=== PATIENT | female | born 1965 | race Caucasian/White ===

== ENCOUNTER → 2017-06-26 | Outpatient (CLI) | payer OTHER | LOC: BHFA 09:30 | PROVIDERS: ATTEND Internal Medicine Cardiovascular Disease | DX: R07.9 Chest pain, unspecified (principal); R94.31 Abnormal electrocardiogram [ECG] [EKG]; J44.9 Chronic obstructive pulmonary disease, unspecified; E78.5 Hyperlipidemia, unspecified; Z72.0 Tobacco use ==

== ENCOUNTER → 2017-07-17 | Outpatient (CLI) | payer OTHER | LOC: BHFA 08:30 | PROVIDERS: ATTEND Internal Medicine Cardiovascular Disease | DX: R07.9 Chest pain, unspecified (principal); R94.31 Abnormal electrocardiogram [ECG] [EKG]; J44.9 Chronic obstructive pulmonary disease, unspecified | CPT/HCPCS: 78452; 93017; 93306; A9500 ==

== ENCOUNTER 2017-08-07 07:32 | Day surgery (SDC) | payer OTHER ==
[2017-08-07] MEDS ORDERED: NS 1,000 ML IV SCH (07:36)
[2017-08-07] MEDS ORDERED: ASPIRIN EC 325 MG TAB PO ONE ×2 (07:36→07:58)
[2017-08-07] MEDS ORDERED: diphenhydrAMINE 25 MG CAP PO ONE ×2 (07:36→07:58)
[2017-08-07] MEDS ORDERED: ACETAMINOPHEN 325 MG TAB PO PRN (07:36)
[2017-08-07] MEDS ORDERED: DIAZEPAM 5 MG TAB PO ONE (07:36)
[2017-08-07] MEDS ORDERED: FAMOTIDINE 20 MG TAB PO ONE (07:36)
[2017-08-07] MEDS ORDERED: TEMAZEPAM 15 MG CAP PO PRN (07:36)
[2017-08-07] MEDS ORDERED: NITROGLYCERIN 0.4 MG BTL SL PRN (07:36)
--- NOTE | 2017-08-07 07:53 | CPEKG ---
Heart Rate: 105 RR Interval: 571 P-R Interval: 148 QRSD Interval: 84 QT Interval: 344 QTC Interval: 455 P [place]: 77 QRS [place]: 28 T Wave [place]: 9 EKG Severity - ABNORMAL ECG - EKG Impression: SINUS TACHYCARDIA EKG Impression: RIGHT ATRIAL ABNORMALITY EKG Impression: CONSIDER POSTERIOR INFARCT Electronically Signed By: Benitez Plata 10-Aug-2017 02:37:55
[2017-08-07] MEDS ORDERED: FAMOTIDINE 20 MG TAB ONE (07:58)
[2017-08-07] MEDS ORDERED: DIAZEPAM 5 MG TAB ONE (07:59)
--- NOTE | 2017-08-07 08:38 | PDHPUP ---
History & Physical Update H&P update statement: This history and physical update is based on an assessment of the patient which was completed after admission or registration (within 24 hours), but prior to the surgery/procedure. H&P update: H&P reviewed & patient examined, no change in patient's condition since H&P completed
--- NOTE | 2017-08-07 08:39 | PDPROPOC ---
Sedation Plan of Care Sedation Plan of Care: vital signs stable, mental status noted, patient educated of risks, benefits, alternatives, patient can tolerate sedation Planned drugs: fentanyl, midazolam Mallampati Score: Class 2 Mallampati Reference Image: Patient passed 3-3-2 rule?: Yes
[2017-08-07 08:42] LABS: INR 1.01 (0.83-1.16); PROTIME(PATIENT) 13.5 SEC (12.0-15.0)
[2017-08-07 08:50] LABS: PLATELET COUNT 317 10^3/uL (150-400)
[2017-08-07] MEDS ORDERED: LIDOCAINE 1% 300 MG/30 ML SDV ONE (08:52)
[2017-08-07] MEDS ORDERED: fentaNYL 100 MCG/2 ML INJ ONE (08:53)
[2017-08-07] MEDS ORDERED: MIDAZOLAM 2 MG/2 ML VIAL ONE ×2 (08:53)
[2017-08-07] MEDS ORDERED: NITROGLYCERIN 1,500 MCG/15 ML VIAL MISC ONE (09:00)
[2017-08-07] MEDS ORDERED: BIVALIRUDIN 250 MG/5 ML VIAL IV ONE (09:00)
[2017-08-07] MEDS ORDERED: ATROPINE SULFATE 1 MG/10 ML SYR IVP PRN (10:23)
[2017-08-07] MEDS ORDERED: ONDANSETRON 4 MG/2 ML VIAL IVP PRN (10:23)
[2017-08-07] MEDS ORDERED: OXYCODONE/APAP 5/325 TAB PO PRN (10:23)
--- NOTE | 2017-08-07 10:40 | CPIP ---
[f rep st] INVASIVE CARDIAC PROCEDURE DATE OF PROCEDURE: 08/07/2017 PROCEDURES: 1. Coronary angiography. 2. Left ventriculography. INDICATION: 1. Chest pain. 2. Abnormal nuclear stress test that is low risk. ACCESS: Patient was prepped and draped in sterile fashion. 1% lidocaine was used to anesthetize the right inguinal region. A 6-Ukrainian introducer sheath was placed selectively in the right common femo ral artery via modified Seldinger technique. CORONARY ANGIOGRAPHY: A 6-Ukrainian JL4 was advanced to the left main coronary artery and images obtain ed. The left main coronary artery bifurcated into an LAD and circumflex coronary arteries. The left main coronary artery appeared normal. The left anterior descending coronary artery gave rise to 1 p rominent diagonal branch as well as 2 smaller diagonal branches. The left anterior descending serrato ry artery and its diagonal branches appeared normal. The circumflex coronary artery is a moderate-si zed vessel. The circumflex coronary artery is nondominant. The circumflex coronary artery gave rise to 3 OM branches. The circumflex coronary artery and its OM branches appeared normal. A 6-[place]rainian n o-torque right catheter was advanced to the right coronary artery and images obtained. The right cor onary artery is dominant. The right coronary artery appeared normal. LEFT VENTRICULOGRAPHY: A 6-Ukrainian pigtail catheter was advanced in the left ventricle and images obt ained. Left ventricle is normal in size and had normal systolic function. The estimated ejection fr action is 60%. COMPLICATIONS: None. CONCLUSION: 1. Normal coronary arteries. 2. Normal left ventricular size and systolic function. /[id number]/MODL
== END 2017-08-07 14:18 | disposition home or self-care (01) ==
LOC: FCATH 07:32
PROVIDERS: ATTEND Internal Medicine Cardiovascular Disease
DX: R07.89 Other chest pain (principal); I42.2 Other hypertrophic cardiomyopathy; J44.9 Chronic obstructive pulmonary disease, unspecified; F17.210 Nicotine dependence, cigarettes, uncomplicated; E78.5 Hyperlipidemia, unspecified; F32.9 Major depressive disorder, single episode, unspecified
CPT/HCPCS: J0583; J1200; J1644; J2250; J3010

== ENCOUNTER → 2017-08-20 | Outpatient (CLI) | payer OTHER | LOC: FIMAGING 12:46 | PROVIDERS: ATTEND Family Medicine | DX: Z12.31 Encounter for screening mammogram for malignant neoplasm of breast (principal) ==